=== PATIENT | male | born 1950 | race Caucasian/White ===

== ENCOUNTER 2025-07-16 07:12 | Day surgery (SDC) | payer MEDICARE ==
[2025-07-15 08:40] VITALS: BMI 30.7
[2025-07-16] MEDS ORDERED: Lidocaine 1% (PF) 30 ML VIAL ONE (07:58)
[2025-07-16] MEDS ORDERED: Heparin 10,000 UNITS/ 10 ML VIAL ONE (07:58)
[2025-07-16 08:46] LABS: #Basophils 0.11 10x3/uL (0.0-0.2); #Eosinophils 0.50 10x3/uL (0.0-0.7); #Monocytes 1.06 10x3/uL (0.11-0.59); #Neutrophils 6.98 10x3/uL (1.40-6.50); %Basophils 1.0 % (0.0-1.0); %Eosinophils 4.6 % (0.0-10.0); %Lymphocytes 19.3 % (21.0-51.0); %Monocytes 9.8 % (0.0-10.0); %Neutrophils 64.7 % (42.0-75.0); Hematocrit 46.7 % (42.0-52.0); Hemoglobin 14.2 g/dL (14.0-18.0); Mean Corpuscular Hemoglobin 23.6 pg (27.0-31.0); Mean Corpuscular Volume 77.6 fL (78.0-98.0); Platelet Count 238 10x3/uL (130-400); Red Blood Cell (RBC) Count 6.02 mill/uL (4.70-6.10); White Blood Cell (WBC) Count 10.79 10x3/uL (4.8-10.8)
[2025-07-16 09:02] LABS: ALT (SGPT) 19 U/L (Less than 45); AST (SGOT) 23 U/L (11-34); Albumin 3.4 g/dL (3.1-4.5); Alkaline Phosphatase 60 U/L (40-110); Anion Gap 14 mmol/L (10-20); BUN (Urea Nitrogen) 17 mg/dL (8.4-25.7); Bilirubin, Total 0.5 mg/dL (0.3-1.2); Calc. Creatinine Clearance 94 mL/min (70-130); Calcium 8.9 mg/dL (7.8-10.44); Carbon Dioxide 22 mmol/L (23-31); Chloride 109 mmol/L (98-107); Globulin 3.7 g/dL (2.4-3.5); Glucose 99 mg/dL (83-110); Potassium 4.3 mmol/L (3.5-5.1); Sodium 141 mmol/L (136-145)
[2025-07-16 09:04] LABS: INR-International Normal Ratio 1.1; Prothrombin Time 14.2 sec (12.0-14.7)
[2025-07-16 09:05] LABS: PTT 32.0 sec (22.9-36.1)
[2025-07-16] MEDS ORDERED: Adenosine 6 mg (2 mL) VIAL ONE (10:21)
[2025-07-16] MEDS ORDERED: Iopamidol 370 76% 100 ML VIAL ONE (10:56)
== END 2025-07-16 14:26 | disposition home or self-care (01) ==
LOC: SDC 07:12
PROVIDERS: ATTEND Internal Medicine Cardiovascular Disease
PROC: 4A023N7 Measurement of Cardiac Sampling and Pressure, Left Heart, Percutaneous Approach (ICD-10-PCS; principal; 2025-07-16)
DX: I25.10 Atherosclerotic heart disease of native coronary artery without angina pectoris (principal); I35.1 Nonrheumatic aortic (valve) insufficiency; I10 Essential (primary) hypertension; R09.89 Other specified symptoms and signs involving the circulatory and respiratory systems; Z98.52 Vasectomy status; Z95.1 Presence of aortocoronary bypass graft; Z79.82 Long term (current) use of aspirin; Z79.899 Other long term (current) drug therapy
CPT/HCPCS: 80053; 85025; 85610; 85730; 93005; 93459; C1769; C1887; C1894; J0153; J1644; J2003; J2250; J3010; Q9967; 93010; 99152; 99153